=== PATIENT | male | born 1990 | race Caucasian/White ===

== ENCOUNTER 2024-10-03 18:39 | Emergency (ER) | payer SELFPAY ==
[2024-10-03] VITALS (8 sets, daily range): BP systolic 75–114; BP diastolic 40–72; PULSE 65–76; RESP 14–20; TEMP 98.4; O2SAT 95–100
[~2024-10-03] VITALS: Ht 190.5 cm; Wt 79.5 kg
[2024-10-03 21:17] LABS: BASOPHILS % (AUTO) 0.6 % (0-1); EOSINOPHILS # (AUTO) 0.1 X10'3 (0-0.9); EOSINOPHILS % (AUTO) 2.4 % (0-6); HEMATOCRIT 32.6 % (42.0-52.0); HEMOGLOBIN 10.9 g/dl (14.0-17.9); LYMPHOCYTES # (AUTO) 1.4 X10'3 (1.1-4.8); LYMPHOCYTES % (AUTO) 25.6 % (21-51); MEAN CORPUSCULAR HGB CONC 33.5 g/dL (33.0-36.5); MEAN CORPUSCULAR VOLUME 89.6 FL (78-98); MEAN PLATELET VOLUME 8.7 FL (7.4-10.4); MONOCYTES # (AUTO) 0.4 X10'3 (0-0.9); MONOCYTES % (AUTO) 7.3 % (2-12); NEUTROPHILS # (AUTO) 3.5 X10'3 (1.8-7.7); NEUTROPHILS % (AUTO) 64.1 % (42-75); PLATELET COUNT 185 X10'3 (140-440); RED BLOOD COUNT 3.64 X10'6 (4.70-6.10); RED CELL DISTRIBUTION WIDTH 13.1 % (11.5-14.5); WHITE BLOOD COUNT 5.5 X10'3 (4.5-11.0)
[2024-10-03] MEDS: HYDROmorphone 1 mg/ml syringe IV ONE (21:23)
[2024-10-03 21:31] LABS: ALBUMIN 3.1 G/DL (3.4-5.0); ANION GAP 8 (8-16); BLOOD UREA NITROGEN 16 MG/DL (7-18); CALCIUM 8.1 MG/DL (8.5-10.1); CHLORIDE 105 MMOL/L (99-107); ETHANOL < 10 MG/DL (<10); GLUCOSE 94 MG/DL (70-104); LIPASE 33 U/L (16-77); MAGNESIUM 1.8 MG/DL (1.5-2.4); POTASSIUM 4.1 MMOL/L (3.5-5.1); SODIUM 139 MMOL/L (135-145); TOTAL CARBON DIOXIDE 26.5 MMOL/L (24-32); eCRCL 149 ML/MIN; eGFR > 90 ML/MIN
[2024-10-03 21:34] LABS: APTT 27 SECONDS (22-32); PROTHROMBIN TIME 10.3 SECONDS (9.0-12.0)
[2024-10-03 21:36] LABS: BILIRUBIN,URINE NEGATIVE (Neg); CLARITY,URINE CLEAR (Clear); COLOR,URINE YELLOW (Yellow); GLUCOSE, URINE >=1000 mg/dl (Neg); KETONES,URINE NEGATIVE (Neg); LEUKOCYTE ESTERASE ,URINE NEGATIVE (Neg); NITRITES, URINE NEGATIVE (Neg); OCCULT BLOOD,URINE NEGATIVE (Neg); PROTEIN,URINE NEGATIVE (Neg); UROBILINOGEN,URINE 0.2 E.U/dL (0.2-1.0)
[2024-10-03] MEDS ORDERED: fentaNYL/PF 50MCG/1 ML 2ML syringe ONE (21:36)
[2024-10-03] MEDS ORDERED: MIDAZolam 1 MG/ML 5ML VIAL ONE ×2 (21:37→21:54)
[2024-10-03] MEDS ORDERED: LIDOcaine 2% Viscous 15ml cup ONE (21:37)
[2024-10-03] MEDS ORDERED: simethicone 40mg/0.6ml oral drops 30ml ONE (21:43)
[2024-10-03] MEDS ORDERED: diphenhydrAMINE 50 mg/ml inj ONE (21:52)
[2024-10-03 22:13] LABS: UA COLLECTION TYPE CLN CATCH MIDSTREAM
[2024-10-03 22:14] LABS: WBC,URINE NONE SEEN /HPF (0-4)
[2024-10-03 22:15] LABS: BACTERIA,URINE NONE SEEN /HPF (Neg); RBC,URINE NONE SEEN /HPF (0-2); SQUAMOUS EPITHELIAL CELL,UR NONE SEEN /LPF (FEW)
[2024-10-03] MEDS: normal saline 1000ml 1,000 ML IV ONE (23:43)
[2024-10-03] MEDS: meperidine/PF 25mg/ml syringe IV ONE (23:53)
[2024-10-04 03:37] VITALS: BP 107/74; PULSE 68; RESP 18; O2SAT 100
== END 2024-10-04 03:39 | disposition home or self-care (01) ==
LOC: ER 18:42
DX: T18.9XXA Foreign body of alimentary tract, part unspecified, initial encounter (principal); F17.210 Nicotine dependence, cigarettes, uncomplicated; F12.90 Cannabis use, unspecified, uncomplicated; W44.F9XA Other object of natural or organic material, entering into or through a natural orifice, initial encounter; Y93.89 Activity, other specified; Y92.89 Other specified places as the place of occurrence of the external cause; Y99.8 Other external cause status
CPT/HCPCS: 36415; 43237; 70360; 71046; 74018; 74176; 80048; 80320; 81001; 83690; 83735; 85025; 85610; 85730; 96361; 96374; 99285; J1171; J1200; J2250; J3010; J7030; Z7512; 99152; 99153; A4620; C1769